=== PATIENT | female | born 1980 ===

== ENCOUNTER → 2018-06-06 | Outpatient (CLI) | payer BC | END | disposition home or self-care (01) | LOC: LAB SHORT 15:05 → LAB EV 15:05 | DX: N39.0 Urinary tract infection, site not specified (principal) | CPT/HCPCS: 87077; 87086; 87186 ==

== ENCOUNTER 2022-07-23 09:43 | Day surgery (SDC) | payer OTHER ==
[2022-07-21 11:37] LABS: BASOPHILS ABSOLUTE AUTO 0.05 K/mm3 (0.00-0.23); BASOPHILS PERCENT AUTO 1 % (0-2); EOSINOPHILS ABSOLUTE AUTO 0.07 K/mm3 (0.00-0.68); EOSINOPHILS PERCENT AUTO 1 % (0-6); Hematocrit 41.9 % (33.0-51.0); Hemoglobin 13.8 g/dL (11.5-16.0); IMMATURE GRAN ABSOLUTE AUTO 0.02 K/mm3 (0.00-0.10); IMMATURE GRAN PERCENT AUTO 0 % (0-1); LYMPHOCYTES ABSOLUTE AUTO 2.39 K/mm3 (0.84-5.20); LYMPHOCYTES PERCENT AUTO 31 % (21-46); MONOCYTES ABSOLUTE AUTO 0.48 K/mm3 (0.16-1.47); MONOCYTES PERCENT AUTO 6 % (4-13); Mean Corpuscular HGB 28.6 pg (26.0-34.0); Mean Corpuscular HGB Conc 32.9 g/dL (31.5-36.5); Mean Corpuscular Volume 87 fL (80-100); Mean Platelet Volume 11.9 fL (9.1-12.4); NEUTROPHILS ABSOLUTE AUTO 4.76 K/mm3 (1.96-9.15); NEUTROPHILS PERCENT AUTO 61 % (41-73); Platelet Count 242 K/mm3 (150-400); RDW Coefficient Variation 13.2 % (11.7-14.2); RDW Standard Deviation 41.9 fL (35.1-46.3); Red Blood Cell Count 4.83 M/mm3 (3.80-5.20); White Blood Cell Count 7.77 K/mm3 (4.00-11.30)
[~2022-07-23] VITALS: Ht 162.6 cm; Wt 116.3 kg
[2022-07-23] VITALS (15 sets, daily range): BP systolic 118–145; BP diastolic 62–89
[~2022-07-23 09:43] MED LIST: IBUP200 PO; INDO50 PO
[2022-07-23] MEDS ORDERED: METF500C PO (09:44)
[2022-07-23] MEDS ORDERED: Maxalt Mlt10 MG SL (09:45)
[2022-07-23] MEDS ORDERED: ACET325 PO (09:46)
--- NOTE | 2022-07-23 17:05 | NUR ---
1645 ARRIVED TO ROOM. AWAKE, ORIENTED. PT REPORTS SOME LOWER ABD CRAMPING AND BACK PAIN. K PAD PLACED TO [facility]. ABD LAP SITES X4 INTACT AND WITHOUT DRAINAGE. PERIPAD IN PLACE AND NO VAGINAL DRAINAGE. CHUNG WITH CLEAR YELLOW URINE OUTPUT. PT REPORTS ADEQUATE PAIN CONTROL AT THIS TIME
[2022-07-24 04:20] VITALS: BP 126/85
[2022-07-24 04:27] LABS: BASOPHILS ABSOLUTE AUTO 0.02 K/mm3 (0.00-0.23); BASOPHILS PERCENT AUTO 0 % (0-2); EOSINOPHILS PERCENT AUTO 0 % (0-6); IMMATURE GRAN ABSOLUTE AUTO 0.05 K/mm3 (0.00-0.10); IMMATURE GRAN PERCENT AUTO 0 % (0-1); LYMPHOCYTES ABSOLUTE AUTO 1.54 K/mm3 (0.84-5.20); LYMPHOCYTES PERCENT AUTO 13 % (21-46); MONOCYTES ABSOLUTE AUTO 0.35 K/mm3 (0.16-1.47); MONOCYTES PERCENT AUTO 3 % (4-13); Mean Corpuscular HGB 28.2 pg (26.0-34.0); Mean Corpuscular HGB Conc 32.5 g/dL (31.5-36.5); Mean Corpuscular Volume 87 fL (80-100); Mean Platelet Volume 12.2 fL (9.1-12.4); NEUTROPHILS ABSOLUTE AUTO 9.65 K/mm3 (1.96-9.15); NEUTROPHILS PERCENT AUTO 83 % (41-73); Platelet Count 272 K/mm3 (150-400); RDW Coefficient Variation 13.5 % (11.7-14.2); RDW Standard Deviation 42.6 fL (35.1-46.3); Red Blood Cell Count 4.61 M/mm3 (3.80-5.20); White Blood Cell Count 11.61 K/mm3 (4.00-11.30)
--- NOTE | 2022-07-24 05:31 | NUR ---
SHIFT SUMMARY: POD1 ROBOTIC TOTAL LAP HYSTER. X4 LAP SITES REMAIN C/D/I AT THIS TIME. PT TOLERATING PO INTAKE. JULIET REMOVED THIS AM. AMBULATED IN HALLWAY AND REPORTS FEELING STEADY ON HER FEET. ABD BINDER IN PLACE. PT RESTING WITH CALL LIGHT IN REACH. WILL GIVE REPORT TO DAY TIME RN.
[2022-07-24 07:57] VITALS: BP 120/78
[2022-07-24] MEDS ORDERED: ESTR2 PO (10:42)
[2022-07-24] MEDS ORDERED: Norco 5-325 Ta1 EACH PO (10:42)
[2022-07-24] MEDS ORDERED: PROM25 PO (10:44)
[2022-07-24] MEDS ORDERED: SIME80CH PO (10:45)
== END 2022-07-24 11:05 | disposition home or self-care (01) ==
LOC: ORSCMMR 09:43 → ORD 11:30 → ORSCMMR 11:30 → SURS 16:48 → ORSCMMR 07-24 11:05
PROVIDERS: Obstetrics & Gynecology
PROC: 0UT7FZZ Resection of Bilateral Fallopian Tubes, Via Natural or Artificial Opening With Percutaneous Endoscopic Assistance (ICD-10-PCS; principal; 2022-07-23 11:30)
PROC: 0UT9FZZ Resection of Uterus, Via Natural or Artificial Opening With Percutaneous Endoscopic Assistance (ICD-10-PCS; principal; 2022-07-23 11:30)
PROC: 0U5F4ZZ Destruction of Cul-de-sac, Percutaneous Endoscopic Approach (ICD-10-PCS; principal; 2022-07-23 11:30)
PROC: 8E0W4CZ Robotic Assisted Procedure of Trunk Region, Percutaneous Endoscopic Approach (ICD-10-PCS; principal; 2022-07-23 11:30)
PROC: 0UT2FZZ Resection of Bilateral Ovaries, Via Natural or Artificial Opening With Percutaneous Endoscopic Assistance (ICD-10-PCS; principal; 2022-07-23 11:30)
DX: N80.00 Endometriosis of the uterus, unspecified (principal); E28.2 Polycystic ovarian syndrome; N94.6 Dysmenorrhea, unspecified; D27.0 Benign neoplasm of right ovary; N83.292 Other ovarian cyst, left side; N83.291 Other ovarian cyst, right side; N83.12 Corpus luteum cyst of left ovary; N83.11 Corpus luteum cyst of right ovary; N80.329 Endometriosis of the posterior cul-de-sac, unspecified depth; E11.9 Type 2 diabetes mellitus without complications; J45.909 Unspecified asthma, uncomplicated; E66.01 Morbid (severe) obesity due to excess calories; Z68.41 Body mass index [BMI] 40.0-44.9, adult; Z79.84 Long term (current) use of oral hypoglycemic drugs; Z79.899 Other long term (current) drug therapy
CPT/HCPCS: 58571; 58662; S2900; 36415; 84702; 85025; 86850; 86900; 86901; 88305; 88307; A9270; J0690; J1100; J2250; J2370; J2704; J2795; J3010; J7120

== ENCOUNTER → 2023-01-18 | Outpatient (CLI) | payer OTHER ==
[~2023-01-18] MED LIST changes: +ACET325 PO; +ESTR2 PO; +METF500C PO; +Maxalt Mlt10 MG SL; +Norco 5-325 Ta1 EACH PO; +PROM25 PO; +SIME80CH PO
== END | disposition home or self-care (01) ==
LOC: LAB 16:49 → LAB SHORT 16:49
DX: N39.0 Urinary tract infection, site not specified (principal)
CPT/HCPCS: 87086

== ENCOUNTER → 2023-01-29 | Outpatient (CLI) | payer OTHER ==
[2023-01-29 18:34] LABS: Cholesterol 168 mg/dL (50-200)
[2023-02-01 19:40] LABS: COMPLEMENT COMPONENT 3 164 mg/dL (90-180); COMPLEMENT COMPONENT 4 26 mg/dL (10-40)
[2023-02-01 20:10] LABS: ANTI-NUCLEAR AB ANA,IGG ELISA None Detected (None Detected)
[2023-02-02 09:21] LABS: HEPATITIS A ANTIBODY, IGM Negative (Negative); HEPATITIS B CORE ANTIBODY, IGM Negative (Negative); HEPATITIS B SURFACE ANTIGEN Negative (Negative); HEPATITIS C AB CIA INTERP Negative (Negative); HEPATITIS C ANTIBODY CIA INDEX 0.09 IV
== END ==
LOC: LAB 18:18 → LAB SHORT 18:18
PROVIDERS: Physician Assistant
DX: R10.9 Unspecified abdominal pain (principal)
CPT/HCPCS: 80074; 82465; 86038; 86160